=== PATIENT | female | born 1955 | race Caucasian/White ===

== ENCOUNTER 2024-06-26 10:07 | Observation (INO) ==
[~2024-06-26 10:07] MED LIST: Metoclopramide 5 MG/ML VIAL (10 mg) IV PRN; NS 0.45% 1000 ml BAG 1,000 ML IV SCH; Naloxone 0.4 mg VIAL 0.4 mg/ml 1 ml VIAL IV PRN; Ondansetron 4 mg VIAL 2 MG/ML 2 ml VIAL IV PRN; ROPIVACAINE 5 MG/ML 30 ML BTL (0.5%) ONE
[2024-06-26] MEDS ORDERED: Midazolam 2 mg/2 ml VIAL 1 mg/ml 2 ml VIAL (2 mg) ONE ×2 (10:19→11:48)
[2024-06-26] MEDS ORDERED: fentaNYL 100 mcg/2 ml 50 MCG/ML VIAL ONE ×4 (10:20→15:53)
[2024-06-26] MEDS ORDERED: Lidocaine 2% PF 5 ML VIAL ONE (10:20)
[2024-06-26] MEDS ORDERED: ceFAZolin 2 GM PREMIX 2 GM/50 ML BAG ONE (10:55)
[2024-06-26] MEDS ORDERED: Tranexamic Acid 1 GM/100ML BAG 2,000 MG/200 ML BAG IV ONE (10:55)
[2024-06-26 11:11] LABS: Rapid COVID-19 Molecular Undetected (Undetected)
[2024-06-26] MEDS: Lactated Ringers 1000 ml BAG 1,000 ML IV SCH ×2 (11:11→17:30)
[2024-06-26] MEDS: Buffered Lidocaine 1% SYRIN 1 ml INTRADERM ONE (11:12)
[2024-06-26] MEDS ORDERED: ROPIVACAINE 5 MG/ML 30 ML BTL (0.5%) ONE (11:49)
[2024-06-26] MEDS ORDERED: Metoclopramide 5 MG/ML VIAL (10 mg) ONE (13:18)
[2024-06-26] MEDS ORDERED: Ondansetron 4 mg VIAL 2 MG/ML 2 ml VIAL ONE (13:18)
[2024-06-26] MEDS ORDERED: KETAMINE HCL 10 MG/ML 20 ml VIAL (200 MG) ONE (13:18)
[2024-06-26] MEDS ORDERED: Dexmedetomidine 200 mcg/2 ml 2 ml VIAL (200 mcg) ONE (13:33)
[2024-06-26] MEDS ORDERED: Labetalol IV 5 MG/ML 20 ml VIAL ONE (13:44)
[2024-06-26] MEDS ORDERED: hydrALAZINE 20 mg/ml 1 ML Vial IV ONE (13:54)
[2024-06-26] MEDS ORDERED: Dexamethasone IV 4 MG/ML VIAL 1 ml VIAL ONE (13:54)
[2024-06-26] MEDS ORDERED: HYDROmorphone 0.5 MG/0.5 ML SYRINGE ONE (14:06)
[2024-06-26] MEDS ORDERED: Calcium Carb (TUMS) 500 mg CHEW TAB PO PRN (15:33)
[2024-06-26] MEDS ORDERED: Ondansetron 4 mg VIAL 2 MG/ML 2 ml VIAL IV PRN (15:33)
[2024-06-26] MEDS ORDERED: Morphine 2 MG/ML SYRINGE IV PRN (15:33)
[2024-06-26] MEDS ORDERED: Ondansetron ODT 4 mg TAB 4 MG TAB PO PRN (15:33)
[2024-06-26] MEDS ORDERED: Magnesium Hydroxide LIQ 30 ML UDC PO PRN (15:33)
[2024-06-26] MEDS ORDERED: Lactulose 30 ml UDC PO PRN (15:33)
[2024-06-26] MEDS: fentaNYL 100 mcg/2 ml 50 MCG/ML VIAL IV PRN (16:02)
[2024-06-26] MEDS: Scopolamine 1 mg/72hr PATCH TRANSDERM ONE (17:37)
[2024-06-26] MEDS: Acetaminophen IV 1 GM/100ML 1,000 MG/100 ML BAG IV ONE (17:37)
[2024-06-26] MEDS: ceFAZolin 2 GM PREMIX 2 GM/50 ML BAG IV SCH (22:50)
[2024-06-26] MEDS: Magnesium Hydroxide LIQ 30 ML UDC PO SCH (23:30)
[2024-06-27 06:21] LABS: Hematocrit 30.5 % (35-45); Hemoglobin 10.5 g/dL (11.5-14.3); Mean Platelet Volume 8.6 fL (7.5-11.2); Platelet Count 191 10^3/uL (150-450)
[2024-06-27 07:05] LABS: Calcium 8.1 mg/dL (8.6-10.3); Creatinine, Serum 0.74 mg/dL (0.51-0.95); Potassium 4.3 mmol/L (3.5-5.0); eGFR CKD-EPI 88.1 (>60)
[2024-06-27] MEDS: Vitamin THERAPEUTIC TAB PO SCH (08:30)
[2024-06-27] MEDS: Cholecalciferol (VIT D3) 1,000 unit TAB PO SCH (08:30)
[2024-06-27 14:44] VITALS: BP 135/75
== END 2024-06-27 17:00 | disposition home or self-care (01) ==
LOC: SSU 10:07 → OR 10:07
PROVIDERS: ADMIT Orthopaedic Surgery Adult Reconstructive Orthopaedic Surgery; ATTEND Orthopaedic Surgery Adult Reconstructive Orthopaedic Surgery